=== PATIENT | male | born 1980 | race Caucasian/White ===

== ENCOUNTER 2017-09-17 11:09 | Emergency (ER) | payer BC ==
[2017-09-17 11:18] VITALS: BP 98/58
--- NOTE | 2017-09-17 11:43 | UC ---
Lower Extremity/Ankle HPI - HPI Summary HPI Summary: The patient is a 36-year-old male who stepped on a foreign about 10 days ago. He has had a foreign body sensation in his left foot since then. On the day of the injury he attempted to remove the foreign body but could not see it. He feels a sharp pain when he bears weight. He has some slight redness in the area of the foreign body. No fever, no redness, no streaks. His tetanus shot is up-to-date. - History of Current Complaint Chief Complaint: UCForeignBody Stated Complaint: FOOT COMPLAINT Hx Obtained From: Patient Onset/Duration: Sudden Onset, Lasting Days - 10 Severity Initially: Moderate Severity Currently: Moderate Pain Intensity: 7 - with wt bearing Pain Scale Used: 0-10 Numeric Aggravating Factor(s): Standing, Ambulation Alleviating Factor(s): Rest Able to Bear Weight: Yes - Allergies/Home Medications Allergies/Adverse Reactions: Allergies Allergy/AdvReac Type Severity Reaction Status Date / Time No Known Allergies Allergy Verified 06/10/17 10:34 PMH/Surg Hx/FS Hx/Imm Hx Previously Healthy: Yes - Surgical History Surgical History: Yes Surgery Procedure, Year, and Place: BILAT EAR TUBES A CHILD;. TONSILLECTOMY A CHILD;. ORIF LEFT ELBOW AND REMOVAL OF [place] 2013 - [facility] [place]; - Family History Known Family History: Positive: Hypertension - Social History Alcohol Use: Weekly Alcohol Amount: 2-5 DRINKS PER WEEK Substance Use Type: Marijuana Substance Use Comment - Amount & Last Used: 1-2/WEEK Smoking Status (MU): Never Smoked Tobacco Type: Cigarettes Amount Used/How Often: few times per year Have You Smoked in the Last Year: Yes Review of Systems Constitutional: Negative Skin: Negative Eyes: Negative ENT: Negative Respiratory: Negative Cardiovascular: Negative Gastrointestinal: Negative Genitourinary: Negative Motor: Negative Neurovascular: Negative Musculoskeletal: Negative Neurological: Negative Psychological: Negative Is Patient Immunocompromised?: No All Other Systems Reviewed And Are Negative: Yes Physical Exam Triage Information Reviewed: Yes Appearance: Well-Appearing, No Pain Distress, Well-Nourished Vital Signs: Initial Vital Signs Temp 98 F 09/17/17 11:15 Pulse 54 09/17/17 11:15 Resp 16 09/17/17 11:15 BP 98/58 09/17/17 11:15 Pulse Ox 100 09/17/17 11:15 Vital Signs Reviewed: Yes Eyes: Positive: Conjunctiva Clear ENT: Positive: Hearing grossly normal. Negative: Nasal congestion, Nasal drainage, TMs normal, Trismus, Muffled voice, Hoarse voice Neck: Positive: Supple, Nontender, No Lymphadenopathy Respiratory: Positive: Lungs clear, Normal breath sounds, No respiratory distress Cardiovascular: Positive: RRR Musculoskeletal: Positive: Strength Intact, ROM Intact, No Edema Neurological: Positive: Alert Psychological Exam: Normal Skin Exam: Normal Lower Extremity Course/Dx - Differential Dx/Diagnosis Provider Diagnoses: retained foreign body left foot Discharge - Sign-Out/Discharge Documenting (check all that apply): Patient Departure - Discharge Plan Condition: Stable Disposition: HOME Prescriptions: Cephalexin CAP* [Keflex CAP*] 500 mg PO QID #28 cap Patient Education Materials: Soft Tissue Foreign Body (ED) Referrals: Yandel Bullock MD [Medical Doctor] - 1 Week (if not better) Alisa Renee MD [Primary Care Provider] - Additional Instructions: I suspe you have a retained foreign body (thorn) in your left foot I was unable to see it I suggest warm soapy soaks twice daily take keflex as directed if foreign body sensation persists I suggest you follow up with a general surgeon - Billing Disposition and Condition Condition: STABLE Disposition: Home Images Feet (Multiple View): 1 - FB sensation here, no FB noted, very minimal swelling
== END 2017-09-17 11:45 | disposition home or self-care (01) ==
LOC: UCEAST 11:09
DX: M79.5 Residual foreign body in soft tissue (principal); W22.8XXA Striking against or struck by other objects, initial encounter; Y92.9 Unspecified place or not applicable
CPT/HCPCS: 99212; G0463